=== PATIENT | male | born 1965 | race African-American/Black ===

== ENCOUNTER 2016-10-15 18:49 | Inpatient (IN) | payer OTHER ==
[~2016-10-15] VITALS: Ht 167.6 cm; Wt 92.3 kg
[~2016-10-15 18:49] MED LIST: ADVIL,NUPRIN,M200 MG PO; AMLODIPINE BESYL5 MG PO; APRESOLINE50 MG PO; CIPRO250 MG PO; CLINDAMYCIN HC300 MG PO; FLEXERIL10 MG PO; LOPRESSOR50 MG PO; LORTAB 5-325 M1 EACH PO; MEDROL DOSEPAK4 MG PO; METOPROLOL TAR100 MG PO; NORVASC10 MG PO; PRAVACHOL40 MG PO; ZANTAC150 MG PO
[2016-10-15 19:41] LABS: BASOPHIL COUNT 0.1 K/uL (0-0.1); EOSINOPHIL COUNT 0.6 K/uL (0-0.3); HEMATOCRIT 39.3 % (38.0-50.0); IMMATURE GRANULOCYTE (%) 1.2 % (0.0-0.7); IMMATURE GRANULOCYTE COUNT 0.1 K/uL; INSTRUMENT ABS NEUTROPHIL CT 8.5 K/uL; LYMPHOCYTE COUNT 1.6 K/uL (1.0-2.8); MCH 25.7 PG (29.0-34.0); MCHC 31.8 G/DL (30.0-36.0); MCV 80.9 FL (86-99); MEAN PLAT.VOLUME 10.7 uM^3 (9.0-12.4); MONOCYTE (%) 7.9 % (3-12); MONOCYTE COUNT 0.9 K/uL (0-0.8); NEUTROPHIL (%) 71.7 % (45-76); NEUTROPHIL COUNT 8.5 K/uL (1.8-6.4); PLATELET COUNT 856 K/uL (156-360); RBC DIS.WIDTH-CV 16.4 % (11.8-14.6); RBC DIS.WIDTH-SD 47.9 % (39-53); RED BLOOD COUNT 4.86 M/uL (4.00-5.50); WHITE BLOOD COUNT 11.8 K/uL (4.1-10.2)
[2016-10-15 19:57] LABS: CHLORIDE 114 mEq/L (99-109); POTASSIUM 5.4 mEq/L (3.7-5.4); SODIUM 140 mEq/L (136-147)
[2016-10-15 19:59] LABS: GLUCOSE 84 mg/dL (70-99)
[2016-10-15 20:00] LABS: ANION GAP 14 MEQ/L (2-14)
[2016-10-15 20:01] LABS: TOTAL BILIRUBIN 0.2 mg/dL (0.0-1.0)
[2016-10-15 20:02] LABS: ALKALINE PHOSPHATASE 170 IU/L (3-129)
[2016-10-15 20:03] LABS: GFR ESTIMATE (CALCULATED) 10 mL/min/
[2016-10-15 20:04] LABS: UREA NITROGEN (BUN) 72 mg/dL (9-23)
[2016-10-15] MEDS ORDERED: AMLODIPINE BESYL5 MG PO (22:29)
[2016-10-15] MEDS ORDERED: LOPRESSOR100 M1 PO (22:29)
[2016-10-15] MEDS ORDERED: PRAVASTATIN SOD40 MG PO (22:29)
[2016-10-16 02:13] LABS: BASE EXCESS -10.7 mEq/L (-3 to +3); BICARBONATE 13.7 mEq/L (22-26); CARBOXY HGB 0.7 % (0-5); METHEMOGLOBIN 0.6 % (0-1.5); PCO2 26 mm Hg (35-45); PO2 86 mm Hg (80-100); pH 7.33 (7.35-7.45)
[2016-10-16 02:14] LABS: COMMENTS - BLOOD GASES A+C+; DEVICE RA; SITE RR; TOTAL RESP RATE 18 resp/min
[2016-10-16 02:23] VITALS: BP 167/84
[2016-10-16 06:34] LABS: HEMATOCRIT 36.1 % (38.0-50.0); MCH 25.9 PG (29.0-34.0); MCHC 31.6 G/DL (30.0-36.0); MCV 81.9 FL (86-99); MEAN PLAT.VOLUME 10.5 uM^3 (9.0-12.4); PLATELET COUNT 766 K/uL (156-360); RBC DIS.WIDTH-CV 16.4 % (11.8-14.6); RBC DIS.WIDTH-SD 49.5 % (39-53); RED BLOOD COUNT 4.41 M/uL (4.00-5.50); WHITE BLOOD COUNT 9.3 K/uL (4.1-10.2)
[2016-10-16 07:05] LABS: ANION GAP 10 MEQ/L (2-14); CHLORIDE 114 MEQ/L (99-109); GFR ESTIMATE (CALCULATED) 11 mL/min/; GLUCOSE 77 mg/dL (70-99); POTASSIUM 5.7 MEQ/L (3.7-5.4); SAMPLE HEMOLYSIS CHECK 0; SAMPLE ICTERIC CHECK 0; SAMPLE LIPEMIA CHECK 0; SODIUM 141 MEQ/L (136-147); UREA NITROGEN (BUN) 67 mg/dL (9-23)
[2016-10-16 07:17] LABS: ADD MIUA? YES; BILIRUBIN NEGATIVE; BLOOD SMALL; COLOR STRAW ((YELLOW)); GLUCOSE (STRIP) NEGATIVE; KETONES NEGATIVE; LEUKOCYTES NEGATIVE; NITRITE NEGATIVE; PROTEIN (STRIP) 100; SPECIFIC GRAVITY 1.008 (1.000-1.030); UROBILINOGEN 0.2 MG/DL (0.2-1.0)
[2016-10-16 07:34] VITALS: BP 138/83
[2016-10-16 07:39] LABS: BACTERIA RARE /HPF; EPITHELIAL CELLS NONE SEEN /HPF; MUCUS TRACE /LPF; RED BLOOD CELLS 0-5 /HPF (0-5); WHITE BLOOD CELLS 0-5 /HPF (0-5)
[2016-10-16 10:43] LABS: INTACT PARATHYROID HORMONE 907 pg/mL (10-69)
[2016-10-16 11:05] VITALS: BP 179/94
[2016-10-16 16:00] VITALS: BP 152/68
[2016-10-16 20:03] VITALS: BP 171/64
[2016-10-16 22:59] VITALS: BP 162/93
[2016-10-17] VITALS (7 sets, daily range): BP systolic 135–186; BP diastolic 78–102
[2016-10-17 06:39] LABS: BASOPHIL COUNT 0.1 K/uL (0-0.1); EOSINOPHIL (%) 4.1 % (0-5); EOSINOPHIL COUNT 0.4 K/uL (0-0.3); HEMATOCRIT 36.2 % (38.0-50.0); IMMATURE GRANULOCYTE (%) 1.2 % (0.0-0.7); IMMATURE GRANULOCYTE COUNT 0.1 K/uL; INSTRUMENT ABS NEUTROPHIL CT 7.4 K/uL; LYMPHOCYTE COUNT 1.3 K/uL (1.0-2.8); MCH 25.1 PG (29.0-34.0); MCHC 31.2 G/DL (30.0-36.0); MCV 80.4 FL (86-99); MEAN PLAT.VOLUME 10.1 uM^3 (9.0-12.4); MONOCYTE (%) 7.9 % (3-12); MONOCYTE COUNT 0.8 K/uL (0-0.8); NEUTROPHIL (%) 72.9 % (45-76); NEUTROPHIL COUNT 7.4 K/uL (1.8-6.4); PLATELET COUNT 705 K/uL (156-360); RBC DIS.WIDTH-CV 16.3 % (11.8-14.6); RBC DIS.WIDTH-SD 47.2 % (39-53); WHITE BLOOD COUNT 10.2 K/uL (4.1-10.2)
[2016-10-17 07:07] LABS: ANION GAP 11 MEQ/L (2-14); CHLORIDE 111 MEQ/L (99-109); GFR ESTIMATE (CALCULATED) 12 mL/min/; GLUCOSE 114 mg/dL (70-99); POTASSIUM 4.1 MEQ/L (3.7-5.4); SAMPLE HEMOLYSIS CHECK 0; SAMPLE ICTERIC CHECK 0; SAMPLE LIPEMIA CHECK 0; SODIUM 140 MEQ/L (136-147); UREA NITROGEN (BUN) 60 mg/dL (9-23)
[2016-10-17 11:41] LABS: AHBS INDEX 0.15; HEPATITIS B SURFACE ANTIBODY Nonreactive; HPCA INDEX 0.07
[2016-10-17 11:42] LABS: ANTI-HEPATITIS A VIRUS (IGM) Nonreactive; HAV INDEX 0.19
[2016-10-17 11:43] LABS: ANTI-HEPATITIS B CORE (IGM) Nonreactive; HBC IgM INDEX 0.05
[2016-10-18 06:07] LABS: BASOPHIL COUNT 0.1 K/uL (0-0.1); EOSINOPHIL (%) 4.5 % (0-5); EOSINOPHIL COUNT 0.4 K/uL (0-0.3); HEMATOCRIT 37.7 % (38.0-50.0); IMMATURE GRANULOCYTE COUNT 0.2 K/uL; INSTRUMENT ABS NEUTROPHIL CT 6.4 K/uL; LYMPHOCYTE COUNT 1.4 K/uL (1.0-2.8); MCH 25.8 PG (29.0-34.0); MCHC 31.8 G/DL (30.0-36.0); MCV 81.1 FL (86-99); MEAN PLAT.VOLUME 10.6 uM^3 (9.0-12.4); MONOCYTE (%) 9.3 % (3-12); MONOCYTE COUNT 0.9 K/uL (0-0.8); NEUTROPHIL (%) 68.6 % (45-76); NEUTROPHIL COUNT 6.4 K/uL (1.8-6.4); NRBC (%) 0.3 /100 WBC (0-0); PLATELET COUNT 536 K/uL (156-360); RBC DIS.WIDTH-CV 16.2 % (11.8-14.6); RBC DIS.WIDTH-SD 47.5 % (39-53); RED BLOOD COUNT 4.65 M/uL (4.00-5.50); WHITE BLOOD COUNT 9.3 K/uL (4.1-10.2)
[2016-10-18 06:36] LABS: ANION GAP 11 MEQ/L (2-14); CHLORIDE 102 MEQ/L (99-109); GFR ESTIMATE (CALCULATED) 12 mL/min/; POTASSIUM 4.9 MEQ/L (3.7-5.4); SAMPLE HEMOLYSIS CHECK 0; SAMPLE ICTERIC CHECK 0; SAMPLE LIPEMIA CHECK 0; SODIUM 139 MEQ/L (136-147); UREA NITROGEN (BUN) 36 mg/dL (9-23)
[2016-10-18 06:48] LABS: GLUCOSE 83 mg/dL (70-99)
[2016-10-18 07:34] VITALS: BP 153/93
[2016-10-18 11:14] VITALS: BP 150/89
[2016-10-18] MEDS ORDERED: METRONIDAZOLE500 MG PO (13:31)
[2016-10-18] MEDS ORDERED: LABETALOL HCL200 MG PO (13:31)
[2016-10-18] MEDS ORDERED: CIPROFLOXACIN500 M1 PO (13:31)
[2016-10-18] MEDS ORDERED: CALCITRIOL0.25 MCG PO (13:31)
[2016-10-18 15:49] VITALS: BP 177/95
== END 2016-10-18 16:16 | disposition home or self-care (01) | DRG 683 ==
LOC: EME 18:49 → EDOF 10-16 00:49 → 5EAST 10-16 00:49
PROVIDERS: Hospitalist; Internal Medicine; Internal Medicine Nephrology
DX: N17.9 Acute kidney failure, unspecified (principal); I12.0 Hypertensive chronic kidney disease with stage 5 chronic kidney disease or end stage renal disease; N18.6 End stage renal disease; E83.39 Other disorders of phosphorus metabolism; N13.8 Other obstructive and reflux uropathy; E87.2 Acidosis; K57.92 Diverticulitis of intestine, part unspecified, without perforation or abscess without bleeding; E87.5 Hyperkalemia; N20.0 Calculus of kidney; E78.5 Hyperlipidemia, unspecified; D75.89 Other specified diseases of blood and blood-forming organs; N40.1 Benign prostatic hyperplasia with lower urinary tract symptoms; K21.9 Gastro-esophageal reflux disease without esophagitis; Z87.891 Personal history of nicotine dependence; Z87.442 Personal history of urinary calculi; Z91.19 Patient's noncompliance with other medical treatment and regimen; Z68.32 Body mass index [BMI] 32.0-32.9, adult; Z99.2 Dependence on renal dialysis
CPT/HCPCS: 36415; 36600; 74176; 80048; 80053; 80061; 80069; 80074; 81003; 82436; 82803; 83935; 83970; 84100; 84133; 84300; 84550; 85025; 85027; 85651; 86038; 86706; 89190; 93005; 94799; 99281; 99285; C1750; C1894; J1170; J1200; J1644; J1815; J2250; J3010; J7030; J7070; S0020

== ENCOUNTER 2016-12-08 09:40 | Day surgery (SDC) | payer OTHER ==
[~2016-12-08] VITALS: Ht 167.6 cm; Wt 90.7 kg
[~2016-12-08 09:40] MED LIST changes: +CALCITRIOL0.25 MCG PO; +CIPROFLOXACIN500 M1 PO; +LABETALOL HCL200 MG PO; +LOPRESSOR100 M1 PO; +METRONIDAZOLE500 MG PO; +PRAVASTATIN SOD40 MG PO
[2016-12-08 10:18] LABS: HEMATOCRIT 37.6 % (38.0-50.0); MCH 26.8 PG (29.0-34.0); MCHC 30.6 G/DL (30.0-36.0); MCV 87.6 FL (86-99); MEAN PLAT.VOLUME 11.1 uM^3 (9.0-12.4); NRBC (%) 0.2 /100 WBC (0-0); PLATELET COUNT 549 K/uL (156-360); RBC DIS.WIDTH-CV 15.7 % (11.8-14.6); RED BLOOD COUNT 4.29 M/uL (4.00-5.50)
[2016-12-08 10:32] VITALS: BP 180/91
[2016-12-08 11:14] LABS: ANION GAP 12 MEQ/L (2-14); CHLORIDE 111 MEQ/L (99-109); GFR ESTIMATE (CALCULATED) 9 mL/min/; GLUCOSE 85 mg/dL (70-99); POTASSIUM 4.7 MEQ/L (3.7-5.4); SAMPLE HEMOLYSIS CHECK 0; SAMPLE ICTERIC CHECK 0; SAMPLE LIPEMIA CHECK 0; SODIUM 142 MEQ/L (136-147); UREA NITROGEN (BUN) 40 mg/dL (9-23)
[2016-12-08 12:08] LABS: METH RESISTANT S AUREUS PCR NEGATIVE (NEGATIVE)
[2016-12-08 12:23] LABS: PROBE CHECK PASS; SPECIMEN PROCESSING CONTROL PASS
[2016-12-08 14:35] VITALS: BP 193/90
[2016-12-08 15:08] VITALS: BP 188/95
== END 2016-12-08 15:15 | disposition home or self-care (01) ==
LOC: SDC 09:40
PROVIDERS: Surgery
PROC: 031C09F Bypass Left Radial Artery to Lower Arm Vein with Autologous Venous Tissue, Open Approach (ICD-10-PCS; principal; 2016-12-08)
DX: I12.0 Hypertensive chronic kidney disease with stage 5 chronic kidney disease or end stage renal disease (principal); N18.6 End stage renal disease; Z99.2 Dependence on renal dialysis; E78.00 Pure hypercholesterolemia, unspecified; Z87.891 Personal history of nicotine dependence
CPT/HCPCS: 80048; 85027; 87641; J1170; J1644; J2250; J2704; J2720; J3010

== ENCOUNTER → 2017-02-03 | Outpatient (CLI) | payer OTHER | END | disposition home or self-care (01) | LOC: CDC 10:20 | DX: Z01.810 Encounter for preprocedural cardiovascular examination (principal); I49.3 Ventricular premature depolarization | CPT/HCPCS: 93000 ==

== ENCOUNTER → 2017-03-24 | Outpatient (CLI) | payer OTHER | END | disposition home or self-care (01) | LOC: AMB 08:00 | PROC: 02PY33Z Removal of Infusion Device from Great Vessel, Percutaneous Approach (ICD-10-PCS; principal; 2017-03-24) | DX: Z45.2 Encounter for adjustment and management of vascular access device (principal); N19 Unspecified kidney failure; Z99.2 Dependence on renal dialysis | CPT/HCPCS: 99211 ==